=== PATIENT | female | born 1955 | race Caucasian/White ===

== ENCOUNTER 2018-02-23 10:17 | Emergency (ER) | payer MEDICAID ==
[~2018-02-23] VITALS: Ht 157.5 cm; Wt 91.0 kg
[2018-02-23] MEDS ORDERED: SODIUM CHLORIDE 0.9% 250 ML IV ONE (10:49)
[2018-02-23 11:32] LABS: HEMATOCRIT. 39.2 % (36.0-48.0); HEMOGLOBIN. 12.8 g/dL (12.0-16.0); MEAN CORPUSCULAR HEMOGLOBIN 30.5 pg (28.0-32.0); MEAN CORPUSCULAR VOLUME 93.4 fL (81.0-99.0); MEAN PLATELET VOLUME 6.6 fl (7.4-10.4); PLATELET 250 x1000/uL (130-400); RED CELL DISTRIBUTION WIDTH 14.1 % (11.6-14.6)
[2018-02-23 11:33] LABS: CHLORIDE 101 mEq/L (98-107)
[2018-02-23 11:45] LABS: CLARITY URINE CLEAR (CLEAR); COLOR URINE DARK YELLOW (YELLOW); KETONES URINE NEGATIVE (NEGATIVE); LEUKOCYTE ESTERASE URINE NEGATIVE (NEGATIVE); NITRITE URINE NEGATIVE (NEGATIVE); OCCULT BLOOD URINE NEGATIVE (NEGATIVE); PROTEIN URINE NEGATIVE (NEGATIVE); SPECIFIC GRAVITY URINE 1.014 (1.005-1.030); UROBILINOGEN URINE 0.2 E.U./dL (0.2-1.0)
[2018-02-23 12:17] LABS: PLATELET ESTIMATE NORMAL
[2018-02-23 15:27] VITALS: BP 113/56
== END 2018-02-23 16:00 | disposition home or self-care (01) ==
LOC: ER 10:17
DX: R55 Syncope and collapse (principal); I95.1 Orthostatic hypotension; E86.0 Dehydration; Z87.81 Personal history of (healed) traumatic fracture; Z98.890 Other specified postprocedural states
CPT/HCPCS: 36415; 80053; 81003; 84484; 85025; 93005; 96360; 96361; 99285; J7040; Z7610; J7050

== ENCOUNTER 2019-12-12 05:27 | Inpatient (IN) | payer MEDICAID, OTHER ==
[2019-12-12] VITALS (24 sets, daily range): BP systolic 85–149; BP diastolic 34–115
[~2019-12-12] VITALS: Ht 157.5 cm; Wt 86.2 kg
[2019-12-12] MEDS ORDERED: SODIUM CHLORIDE 0.9% 1,000 ML IV ONE ×3 (06:23→08:45)
[2019-12-12 06:50] LABS: CHLORIDE 112 mEq/L (98-107)
[2019-12-12 06:53] LABS: HEMATOCRIT. 37.2 % (36.0-48.0); HEMOGLOBIN. 12.4 g/dL (12.0-16.0); MEAN CORPUSCULAR HEMOGLOBIN 37.2 pg (28.0-32.0); MEAN CORPUSCULAR VOLUME 111.7 fL (81.0-99.0); MEAN PLATELET VOLUME 7.1 fl (7.4-10.4); PLATELET 380 x1000/uL (130-400); RED BLOOD CELL COUNT 3.33 mill/uL (4.2-5.4); RED CELL DISTRIBUTION WIDTH 14.2 % (11.6-14.6)
[2019-12-12 06:54] LABS: ETHANOL BLOOD < 10 mg/dL
[2019-12-12 07:08] LABS: PROTHROMBIN TIME 10.7 sec (9.6-11.0)
[2019-12-12 07:20] LABS: PLATELET ESTIMATE NORMAL
[2019-12-12] MEDS ORDERED: PIPERACILLIN/TAZ 3.375G PREMIX 50 ML IV ONE (08:45)
[2019-12-12] MEDS ORDERED: VANCOMYCIN 1 G PREMIX 200 ML IV ONE (08:45)
[2019-12-12 09:15] LABS: CLARITY URINE CLEAR (CLEAR); COLOR URINE YELLOW (YELLOW); KETONES URINE NEGATIVE (NEGATIVE); LEUKOCYTE ESTERASE URINE 2+ (NEGATIVE); NITRITE URINE NEGATIVE (NEGATIVE); OCCULT BLOOD URINE TRACE (NEGATIVE); PROTEIN URINE NEGATIVE (NEGATIVE); SPECIFIC GRAVITY URINE 1.015 (1.005-1.030); UROBILINOGEN URINE 0.2 E.U./dL (0.2-1.0)
[2019-12-12 09:25] LABS: *AMPHETAMINES SCREEN URINE NEGATIVE (NEGATIVE); *BARBITURATES SCREEN URINE NEGATIVE (NEGATIVE); *BENZODIAZEPINES SCREEN URINE PRESUMTIVE POSITIVE (NEGATIVE)
[2019-12-12 09:26] LABS: *COCAINE SCREEN URINE NEGATIVE (NEGATIVE); CANNABINOID URINE SCREEN NEGATIVE (NEGATIVE); METHADONE URINE SCREEN NEGATIVE (NEGATIVE); OPIATES URINE SCREEN PRESUMTIVE POSITIVE (NEGATIVE); PHENCYCLIDINE URINE SCREEN NEGATIVE (NEGATIVE)
[2019-12-12] MEDS ORDERED: LIDOCAINE HCL 1% 20ML VIAL (Pyxis) INJ ONE (10:12)
[2019-12-12] MEDS ORDERED: NOREPINEPHRINE 4MG/250ML PMX 250 ML IV ONE (10:30)
[2019-12-12] MEDS ORDERED: ACETAMINOPHEN 325MG TABLET PO PRN (11:00)
[2019-12-12] MEDS ORDERED: ONDANSETRON HCL 4MG/2ML INJ IV PRN (11:00)
[2019-12-12] MEDS ORDERED: IPRATROPIUM/ALBUTEROL 0.5-3(2.5)MG/3ML NEB HHN PRN (11:00)
[2019-12-12] MEDS ORDERED: HYDROCODONE/ACETAMINOPHEN 5/325MG TABLET PO PRN (11:30)
[2019-12-12] MEDS: DEXT 5%/0.45% NACL 1000ML 1,000 ML IV SCH (11:56)
[2019-12-12] MEDS: ALPRAZOLAM 0.5 MG TABLET PO SCH ×2 (12:08→21:14)
[2019-12-12] MEDS ORDERED: NOREPINEPHRINE 32 MG in DEXT 5% WATER 468 ML IV PRN (14:15)
[2019-12-12] MEDS ORDERED: POTASSIUM CHLORIDE 20MEQ/PACKET PO NR (15:00)
[2019-12-12] MEDS ORDERED: MORPHINE PO (15:28)
[2019-12-12] MEDS ORDERED: LEVO50TA8 PO (15:28)
[2019-12-12] MEDS ORDERED: OMEP20CA14 PO (15:28)
[2019-12-12] MEDS ORDERED: TRAZ-251 PO (15:28)
[2019-12-12] MEDS ORDERED: GABA-290 PO (15:28)
[2019-12-12] MEDS ORDERED: FLUO20TA29 PO (15:28)
[2019-12-12] MEDS ORDERED: HYDR-3280 PO (15:28)
[2019-12-12] MEDS ORDERED: CELE-84 PO (15:28)
[2019-12-12] MEDS ORDERED: CIME400T PO (15:28)
[2019-12-12] MEDS: MIDODRINE HCL 2.5MG TABLET PO SCH (15:56)
[2019-12-12] MEDS: ENOXAPARIN 40MG/0.4ML SYR SUBCUT SCH (15:57)
[2019-12-12] MEDS: PIPERACILLIN/TAZOBACTAM 3.375 G in DEXT 5% WATER 100 ML IV SCH ×2 (15:57→21:14)
[2019-12-12] MEDS: FLUOXETINE HCL 20MG CAPSULE PO SCH (17:37)
[2019-12-12] MEDS: OMEPRAZOLE 20MG CAPSULE EXTENDED RELEASE PO SCH (17:37)
[2019-12-12] MEDS: GABAPENTIN 400MG CAPSULE PO SCH (17:37)
[2019-12-12] MEDS: HYDROCODONE/ACETAMINOPHEN 5/325MG TABLET PO PRN (21:20)
[2019-12-12] MEDS: MORPHINE SULFATE 2 MG/ML CPJ (NOT FOR IM USE) IV PRN (23:39)
[2019-12-13] VITALS (68 sets, daily range): BP systolic 84–138; BP diastolic 25–78
[2019-12-13] MEDS: DEXT 5%/0.45% NACL 1000ML 1,000 ML IV SCH ×2 (01:00→12:59)
[2019-12-13] MEDS: VANCOMYCIN 1 G PREMIX 200 ML IV SCH ×2 (03:09→22:06)
[2019-12-13] MEDS: PIPERACILLIN/TAZOBACTAM 3.375 G in DEXT 5% WATER 100 ML IV SCH ×3 (03:09→17:33)
[2019-12-13 05:45] LABS: HEMATOCRIT. 27.2 % (36.0-48.0); HEMOGLOBIN. 8.8 g/dL (12.0-16.0); MEAN CORPUSCULAR VOLUME 111.2 fL (81.0-99.0); MEAN PLATELET VOLUME 7.3 fl (7.4-10.4); PLATELET 305 x1000/uL (130-400); RED BLOOD CELL COUNT 2.45 mill/uL (4.2-5.4); RED CELL DISTRIBUTION WIDTH 13.6 % (11.6-14.6)
[2019-12-13] MEDS: GABAPENTIN 400MG CAPSULE PO SCH ×2 (05:49→17:33)
[2019-12-13] MEDS: ALPRAZOLAM 0.5 MG TABLET PO SCH ×3 (05:49→22:06)
[2019-12-13] MEDS: HYDROCODONE/ACETAMINOPHEN 5/325MG TABLET PO PRN ×3 (06:03→19:57)
[2019-12-13 06:09] LABS: CHLORIDE 112 mEq/L (98-107)
[2019-12-13] MEDS ORDERED: OMEPRAZOLE 20MG CAPSULE EXTENDED RELEASE PO SCH (07:50)
[2019-12-13] MEDS: OMEPRAZOLE 20MG CAPSULE EXTENDED RELEASE PO SCH (08:53)
[2019-12-13] MEDS: FLUOXETINE HCL 20MG CAPSULE PO SCH ×3 (08:53→17:33)
[2019-12-13] MEDS: LEVOTHYROXINE SODIUM 50MCG TABLET PO SCH (08:53)
[2019-12-13] MEDS: CELECOXIB 200MG CAPSULE PO SCH (08:54)
[2019-12-13] MEDS: MIDODRINE HCL 2.5MG TABLET PO SCH (08:54)
[2019-12-13] MEDS: MORPHINE SULFATE 2 MG/ML CPJ (NOT FOR IM USE) IV PRN ×2 (08:54→21:22)
[2019-12-13 10:12] LABS: PLATELET ESTIMATE NORMAL
[2019-12-13 12:43] LABS: BG BASE EXCESS -3.6 mmol/L (-2.0-2.0); BG CARBOXYHEMOGLOBIN 0.1 % (0.5-1.5); BG DEOXYHEMOGLOBIN 9.3 % (0.0-5.0); BG FRACTION INSPIRED OXYGEN 21; BG HCO3 ACT 20.7 mmol/L (22.0-26.0); BG OXYGEN SATURATION 90.7 % (92.0-98.5); BG OXYHEMOGLOBIN 90.6 % (94.0-97.0); BG PH 7.403 (7.350-7.450); BG PO2 94.1 mmHg (75.0-100.0); BG SAMPLE SITE RIGHT BRACHIAL; BG TOTAL HEMOGLOBIN 7.9 g/dL (12.0-18.0); BG VENT MODE ROOM AIR
[2019-12-13] MEDS: MIDODRINE HCL 5MG TABLET PO SCH ×2 (12:59→17:33)
[2019-12-13] MEDS: ENOXAPARIN 40MG/0.4ML SYR SUBCUT SCH (12:59)
[2019-12-13] MEDS ORDERED: LORAZEPAM 2MG/ML CPJ IV SCH (14:30)
[2019-12-13 15:27] LABS: HEMATOCRIT 25.5 % (36.0-48.0); HEMOGLOBIN 8.3 g/dL (12.0-16.0)
[2019-12-13 16:09] LABS: TOTAL IRON BINDING CAPACITY 143 ug/dL (250-450)
[2019-12-14] VITALS (96 sets, daily range): BP systolic 61–140; BP diastolic 15–109
[2019-12-14] MEDS: PIPERACILLIN/TAZOBACTAM 3.375 G in DEXT 5% WATER 100 ML IV SCH ×4 (00:03→17:35)
[2019-12-14] MEDS: DEXT 5%/0.45% NACL 1000ML 1,000 ML IV SCH ×2 (03:06→16:48)
[2019-12-14] MEDS: HYDROCODONE/ACETAMINOPHEN 5/325MG TABLET PO PRN ×3 (04:59→17:36)
[2019-12-14] MEDS: MORPHINE SULFATE 2 MG/ML CPJ (NOT FOR IM USE) IV PRN (05:41)
[2019-12-14 06:00] LABS: HEMATOCRIT. 24.5 % (36.0-48.0); HEMOGLOBIN. 8.1 g/dL (12.0-16.0); MEAN CORPUSCULAR HEMOGLOBIN 36.2 pg (28.0-32.0); MEAN CORPUSCULAR VOLUME 109.8 fL (81.0-99.0); MEAN PLATELET VOLUME 6.9 fl (7.4-10.4); PLATELET 261 x1000/uL (130-400); RED BLOOD CELL COUNT 2.23 mill/uL (4.2-5.4); RED CELL DISTRIBUTION WIDTH 13.5 % (11.6-14.6)
[2019-12-14 06:15] LABS: CHLORIDE 114 mEq/L (98-107)
[2019-12-14] MEDS: ALPRAZOLAM 0.5 MG TABLET PO SCH ×2 (06:33→13:00)
[2019-12-14] MEDS: GABAPENTIN 400MG CAPSULE PO SCH ×2 (06:33→17:35)
[2019-12-14 08:26] LABS: PLATELET ESTIMATE NORMAL
[2019-12-14] MEDS: OMEPRAZOLE 20MG CAPSULE EXTENDED RELEASE PO SCH (08:54)
[2019-12-14] MEDS: MIDODRINE HCL 5MG TABLET PO SCH ×3 (08:54→17:36)
[2019-12-14] MEDS: LEVOTHYROXINE SODIUM 50MCG TABLET PO SCH (08:54)
[2019-12-14] MEDS: FLUOXETINE HCL 20MG CAPSULE PO SCH ×3 (08:54→17:36)
[2019-12-14] MEDS: CELECOXIB 200MG CAPSULE PO SCH (08:54)
[2019-12-14] MEDS: FERROUS SULFATE 325MG TABLET PO SCH ×2 (12:51→17:36)
[2019-12-14] MEDS: METRONIDAZOLE 500MG TABLET PO SCH ×2 (13:00→21:05)
[2019-12-14] MEDS: NYSTATIN POWDER 15GM TOP SCH ×2 (13:01→21:05)
[2019-12-14 16:33] LABS: HEMATOCRIT 24.1 % (36.0-48.0)
[2019-12-14] MEDS: VANCOMYCIN 1 G PREMIX 200 ML IV SCH (16:47)
[2019-12-14] MEDS: ALPRAZOLAM 0.5 MG TABLET PO PRN (21:05)
[2019-12-14] MEDS: CEFEPIME 1,000 MG in DEXTROSE 5% WATER 50 ML IV SCH (23:44)
[2019-12-15] VITALS (81 sets, daily range): BP systolic 54–140; BP diastolic 23–101
[2019-12-15] MEDS: HYDROCODONE/ACETAMINOPHEN 5/325MG TABLET PO PRN ×3 (00:33→20:58)
[2019-12-15] MEDS: MORPHINE SULFATE 2 MG/ML CPJ (NOT FOR IM USE) IV PRN ×2 (02:55→11:01)
[2019-12-15] MEDS ORDERED: NOREPINEPHRINE 16 MG in DEXT 5% WATER 234 ML IV PRN (05:35)
[2019-12-15] MEDS: METRONIDAZOLE 500MG TABLET PO SCH ×3 (05:53→23:13)
[2019-12-15] MEDS: DEXT 5%/0.45% NACL 1000ML 1,000 ML IV SCH ×2 (05:53→17:14)
[2019-12-15] MEDS: GABAPENTIN 400MG CAPSULE PO SCH ×2 (05:53→06:00)
[2019-12-15] MEDS: NYSTATIN POWDER 15GM TOP SCH ×3 (05:53→23:00)
[2019-12-15 06:04] LABS: CHLORIDE 115 mEq/L (98-107)
[2019-12-15 06:05] LABS: HEMOGLOBIN. 8.1 g/dL (12.0-16.0); MEAN CORPUSCULAR HEMOGLOBIN 36.6 pg (28.0-32.0); MEAN CORPUSCULAR VOLUME 108.8 fL (81.0-99.0); MEAN PLATELET VOLUME 6.8 fl (7.4-10.4); PLATELET 246 x1000/uL (130-400); RED BLOOD CELL COUNT 2.21 mill/uL (4.2-5.4); RED CELL DISTRIBUTION WIDTH 13.5 % (11.6-14.6)
[2019-12-15] MEDS: FLUOXETINE HCL 20MG CAPSULE PO SCH ×3 (08:25→17:14)
[2019-12-15] MEDS: LACTOBACILLUS GG CAPSULE PO SCH (08:25)
[2019-12-15] MEDS: CELECOXIB 200MG CAPSULE PO SCH (08:25)
[2019-12-15] MEDS: LEVOTHYROXINE SODIUM 50MCG TABLET PO SCH (08:25)
[2019-12-15] MEDS: FERROUS SULFATE 325MG TABLET PO SCH ×3 (08:26→17:14)
[2019-12-15] MEDS: OMEPRAZOLE 20MG CAPSULE EXTENDED RELEASE PO SCH (08:26)
[2019-12-15] MEDS: MULTIVITAMINS,THER W-MINERALS TABLET PO SCH (08:26)
[2019-12-15] MEDS: MIDODRINE HCL 5MG TABLET PO SCH ×3 (08:26→17:14)
[2019-12-15] MEDS: VANCOMYCIN 1 G PREMIX 200 ML IV SCH (10:13)
[2019-12-15] MEDS: CEFEPIME 1,000 MG in DEXTROSE 5% WATER 50 ML IV SCH ×2 (10:13→22:59)
[2019-12-15 11:43] LABS: PLATELET ESTIMATE NORMAL
[2019-12-15] MEDS ORDERED: LOPERAMIDE HCL 2MG CAPSULE PO PRN (11:45)
[2019-12-15] MEDS: ALPRAZOLAM 0.5 MG TABLET PO PRN (20:58)
[2019-12-15] MEDS: GABAPENTIN 300MG CAPSULE PO SCH (20:59)
[2019-12-16] VITALS (12 sets, daily range): BP systolic 81–110; BP diastolic 40–57
[2019-12-16] MEDS: VANCOMYCIN 1 G PREMIX 200 ML IV SCH ×2 (03:43→21:03)
[2019-12-16] MEDS: OMEPRAZOLE 20MG CAPSULE EXTENDED RELEASE PO SCH (06:06)
[2019-12-16] MEDS: METRONIDAZOLE 500MG TABLET PO SCH ×3 (06:06→21:44)
[2019-12-16] MEDS: LEVOTHYROXINE SODIUM 50MCG TABLET PO SCH (06:06)
[2019-12-16] MEDS: HYDROCODONE/ACETAMINOPHEN 5/325MG TABLET PO PRN ×3 (06:18→23:36)
[2019-12-16] MEDS: NYSTATIN POWDER 15GM TOP SCH ×3 (06:19→23:11)
[2019-12-16 08:17] LABS: BASOPHILS % 0.7 % (0.0-2.0); EOSINOPHILS % 0.7 % (0.0-5.0); HEMATOCRIT. 28.7 % (36.0-48.0); HEMOGLOBIN. 9.7 g/dL (12.0-16.0); MEAN CORPUSCULAR HEMOGLOBIN 36.9 pg (28.0-32.0); MEAN CORPUSCULAR VOLUME 109.5 fL (81.0-99.0); MEAN PLATELET VOLUME 7.1 fl (7.4-10.4); MONOCYTES % 7.2 % (2.0-8.0); NEUTROPHILS % 77.4 % (40.0-76.0); PLATELET 272 x1000/uL (130-400); RED BLOOD CELL COUNT 2.62 mill/uL (4.2-5.4); RED CELL DISTRIBUTION WIDTH 13.3 % (11.6-14.6)
[2019-12-16] MEDS: DEXT 5%/0.45% NACL 1000ML 1,000 ML IV SCH (08:20)
[2019-12-16 08:26] LABS: CHLORIDE 113 mEq/L (98-107)
[2019-12-16 08:36] LABS: T4 FREE 1.18 ng/dL (0.76-1.46)
[2019-12-16] MEDS: FERROUS SULFATE 325MG TABLET PO SCH ×3 (09:01→17:46)
[2019-12-16] MEDS: MULTIVITAMINS,THER W-MINERALS TABLET PO SCH (09:01)
[2019-12-16] MEDS: MIDODRINE HCL 5MG TABLET PO SCH ×3 (09:05→17:46)
[2019-12-16] MEDS: LACTOBACILLUS GG CAPSULE PO SCH (09:05)
[2019-12-16] MEDS: CELECOXIB 200MG CAPSULE PO SCH (09:06)
[2019-12-16] MEDS: FLUOXETINE HCL 20MG CAPSULE PO SCH ×3 (09:07→17:46)
[2019-12-16] MEDS ORDERED: POTASSIUM CHLORIDE 20MEQ TABLET SR PO NR (11:00)
[2019-12-16] MEDS: ALPRAZOLAM 0.5 MG TABLET PO PRN (12:33)
[2019-12-16] MEDS: CEFEPIME 1,000 MG in DEXTROSE 5% WATER 50 ML IV SCH ×2 (14:52→23:12)
[2019-12-16] MEDS: MORPHINE SULFATE 2 MG/ML CPJ (NOT FOR IM USE) IV PRN (17:48)
[2019-12-16] MEDS: GABAPENTIN 300MG CAPSULE PO SCH (21:03)
[2019-12-16] MEDS: MENTHOL/LANOLIN/CALAMINE/ZN OX OINT 71GM TOP SCH (23:11)
[2019-12-17] VITALS (9 sets, daily range): BP systolic 91–111; BP diastolic 46–82
[2019-12-17] MEDS: OMEPRAZOLE 20MG CAPSULE EXTENDED RELEASE PO SCH (05:37)
[2019-12-17] MEDS: METRONIDAZOLE 500MG TABLET PO SCH ×2 (05:37→13:37)
[2019-12-17] MEDS: NYSTATIN POWDER 15GM TOP SCH ×2 (05:41→13:37)
[2019-12-17 06:18] LABS: BASOPHILS % 0.8 % (0.0-2.0); EOSINOPHILS % 2.3 % (0.0-5.0); HEMATOCRIT. 26.7 % (36.0-48.0); HEMOGLOBIN. 8.8 g/dL (12.0-16.0); MEAN CORPUSCULAR HEMOGLOBIN 36.2 pg (28.0-32.0); MEAN CORPUSCULAR VOLUME 109.3 fL (81.0-99.0); MEAN PLATELET VOLUME 6.8 fl (7.4-10.4); MONOCYTES % 9.4 % (2.0-8.0); NEUTROPHILS % 70.5 % (40.0-76.0); PLATELET 282 x1000/uL (130-400); RED BLOOD CELL COUNT 2.44 mill/uL (4.2-5.4); RED CELL DISTRIBUTION WIDTH 13.7 % (11.6-14.6)
[2019-12-17 06:49] LABS: CHLORIDE 114 mEq/L (98-107)
[2019-12-17] MEDS: FERROUS SULFATE 325MG TABLET PO SCH ×2 (08:24→13:36)
[2019-12-17] MEDS: FLUOXETINE HCL 20MG CAPSULE PO SCH ×2 (08:24→13:37)
[2019-12-17] MEDS: LACTOBACILLUS GG CAPSULE PO SCH (08:24)
[2019-12-17] MEDS: MULTIVITAMINS,THER W-MINERALS TABLET PO SCH (08:24)
[2019-12-17] MEDS: MIDODRINE HCL 5MG TABLET PO SCH ×2 (08:24→13:36)
[2019-12-17] MEDS: LEVOTHYROXINE SODIUM 50MCG TABLET PO SCH (08:24)
[2019-12-17] MEDS: CELECOXIB 200MG CAPSULE PO SCH (08:24)
[2019-12-17] MEDS: MENTHOL/LANOLIN/CALAMINE/ZN OX OINT 71GM TOP SCH (08:25)
[2019-12-17] MEDS: CEFEPIME 1,000 MG in DEXTROSE 5% WATER 50 ML IV SCH (11:22)
[2019-12-17] MEDS ORDERED: METR500T PO (14:21)
[2019-12-17] MEDS ORDERED: ALBU90AE INH (14:21)
[2019-12-17] MEDS ORDERED: DOXY150T5 PO (14:21)
[2019-12-17] MEDS ORDERED: LEVO500T2 PO (14:21)
[2019-12-17] MEDS ORDERED: MIDO10TA MT (15:28)
== END 2019-12-17 16:15 | disposition home or self-care (01) | DRG 871 ==
LOC: ER 05:44 → CVICU 10:35 → EDBEDREQTM 10:42 → EDBEDREQSVC 10:42 → EDBEDREQ 10:42 → ENRESERV 12:29 → CVICU 14:24 → 5EST 12-15 22:38
PROVIDERS: ADMIT Internal Medicine; ATTEND Internal Medicine
PROC: 02HV33Z Insertion of Infusion Device into Superior Vena Cava, Percutaneous Approach (ICD-10-PCS; principal; 2019-12-12)
PROC: B548ZZA Ultrasonography of Superior Vena Cava, Guidance (ICD-10-PCS; 2019-12-12)
PROC: 0W9930Z Drainage of Right Pleural Cavity with Drainage Device, Percutaneous Approach (ICD-10-PCS; 2019-12-16)
DX: A41.9 Sepsis, unspecified organism (principal); J18.9 Pneumonia, unspecified organism; R65.21 Severe sepsis with septic shock; E43 Unspecified severe protein-calorie malnutrition; I50.33 Acute on chronic diastolic (congestive) heart failure; J96.00 Acute respiratory failure, unspecified whether with hypoxia or hypercapnia; N39.0 Urinary tract infection, site not specified; E87.2 Acidosis; J91.8 Pleural effusion in other conditions classified elsewhere; G90.8 Other disorders of autonomic nervous system; E86.0 Dehydration; D50.9 Iron deficiency anemia, unspecified; D53.9 Nutritional anemia, unspecified; F32.9 Major depressive disorder, single episode, unspecified; G89.4 Chronic pain syndrome; Z20.828 Contact with and (suspected) exposure to other viral communicable diseases; I27.29 Other secondary pulmonary hypertension; I27.81 Cor pulmonale (chronic); E87.8 Other disorders of electrolyte and fluid balance, not elsewhere classified; E87.6 Hypokalemia; F41.9 Anxiety disorder, unspecified; Z98.84 Bariatric surgery status; Z79.899 Other long term (current) drug therapy; Z68.34 Body mass index [BMI] 34.0-34.9, adult; Z79.891 Long term (current) use of opiate analgesic
CPT/HCPCS: 32555; 36415; 36600; 71045; 71250; 72148; 74018; 74176; 76604; 76937; 80048; 80053; 80202; 80305; 80320; 81003; 82040; 82270; 82375; 82533; 82728; 82805; 82962; 83540; 83550; 83605; 83615; 84145; 84439; 84443; 84478; 84481; 84484; 85014; 85018; 85025; 85379; 86850; 86900; 87015; 87045; 87427; 87449; 87493; 87635; 88108; 88312; 89055; 93005; 93306; 93970; 97162; 99291; C1725; C1769; J0692; J1650; J2060; J2270; J2405; J2543; J3370; J3490; J7030; J7060; G0480